=== PATIENT | female | born 1990 | race African-American/Black ===

== ENCOUNTER 2016-10-27 15:57 | Emergency (ER) | payer OTHER ==
[~2016-10-27] VITALS: Ht 170.2 cm; Wt 80.7 kg
[~2016-10-27 15:57] MED LIST: IBUP-1955 PO
[2016-10-27] MEDS ORDERED: IV SET PRIMARY PUMP SET 1 EA INFUS.SET MC ONE ×2 (16:21→16:36)
[2016-10-27] MEDS ORDERED: MORPHINE SULFATE INJ 4 MG/ML DISP.SYRIN ONE (16:21)
[2016-10-27] MEDS ORDERED: IV NS 0.9% 1,000 ML ONE (16:21)
[2016-10-27] MEDS ORDERED: ONDANSETRON HCL/PF 4 MG/2 ML VIAL ONE (16:21)
[2016-10-27] MEDS ORDERED: VANCOMYCIN 1 GM in IV D5W 250 ML IV ONE (16:30)
[2016-10-27] MEDS ORDERED: CEFTRIAXONE 1GM BAG (ER ONLY) 1 GM/50 ML PIGGYBACK IV ONE (16:30)
[2016-10-27] MEDS ORDERED: ONDANSETRON HCL/PF 4 MG/2 ML VIAL IVP ONE (16:30)
[2016-10-27] MEDS ORDERED: MORPHINE SULFATE INJ 2 MG/ML DISP.SYRIN IV ONE (16:30)
[2016-10-27] MEDS ORDERED: IV NS 0.9% 1,000 ML BAG IV ONE (16:30)
[2016-10-27] MEDS ORDERED: CEFTRIAXONE 1GM BAG (ER ONLY) 50 ML IV ONE (16:36)
[2016-10-27 16:41] LABS: BASOPHILS % (AUTO) 0.1 % (0.0-2.0); DIFF TOTAL % 100 %; EOSINOPHILS % (AUTO) 0.2 % (0.0-6.0); HEMATOCRIT 34 % (33-45); HEMOGLOBIN 10.6 g/dL (11.5-14.8); LYMPHOCYTES # (AUTO) 1.7 /CMM (0.8-4.8); MEAN CORPUSCULAR HEMOGLOBIN 24 PG (26.0-33.0); MEAN CORPUSCULAR HGB CONC 31 g/dl (31.0-36.0); MEAN CORPUSCULAR VOLUME 75 fL (82-100); MONOCYTES # (AUTO) 1.1 /CMM (0.1-1.30); MONOCYTES % (AUTO) 7.4 % (2.0-12.0); NEUTROPHILS # (AUTO) 11.6 /CMM (1.8-8.9); NEUTROPHILS % (AUTO) 80.3 % (43.0-81.0); PLATELET COUNT (AUTO) 269 /CMM (150-450); RED BLOOD CELL COUNT(AUTO) 4.49 MIL/uL (4.0-5.2); WHITE BLOOD COUNT (AUTO) 14.5 K/uL (4.3-11.0)
[2016-10-27 16:52] LABS: CALCIUM, SERUM 8.7 mg/dL (8.5-10.1); CREATININE 0.8 mg/dL (0.6-1.3); POTASSIUM 3.3 mmol/L (3.5-5.1)
[2016-10-27 16:59] LABS: LACTIC ACID 1.4 mmol/L (0.4-2.0)
[2016-10-27 18:49] VITALS: BP 128/56
== END 2016-10-27 18:50 | disposition home or self-care (01) ==
LOC: ER 15:59
DX: N61.0 Mastitis without abscess (principal); J45.909 Unspecified asthma, uncomplicated; Z98.890 Other specified postprocedural states
CPT/HCPCS: 36415; 76642; 80048; 83605; 85025; 87040; 96361; 96365; 96368; 96375; 99285; A4606; J0696; J2270; J2405; J3370; J7030; J7060; Z7610

== ENCOUNTER 2017-01-01 21:16 | Emergency (ER) | payer OTHER ==
[~2017-01-01] VITALS: Ht 170.2 cm; Wt 77.1 kg
--- NOTE | 2017-01-01 21:24 | NUR ---
called pt in wr, no reponse
[2017-01-01 21:45] VITALS: BP 135/81
--- NOTE | 2017-01-01 22:07 | NUR ---
CALLED RT FOR BREATHING TREATMENT
[2017-01-01] MEDS ORDERED: ALBUTEROL FS 2.5 MG/3 ML VIAL.NEB ONE (22:14)
[2017-01-01] MEDS: ALBUTEROL FS 2.5 MG/3 ML VIAL.NEB NEB ONE (22:15)
[2017-01-01] MEDS ORDERED: predniSONE 20 MG TABLET ONE (22:20)
[2017-01-01] MEDS: predniSONE 20 MG TABLET PO ONE (22:25)
== END 2017-01-01 23:30 | disposition home or self-care (01) ==
LOC: ER 21:21
DX: J06.9 Acute upper respiratory infection, unspecified (principal); J45.909 Unspecified asthma, uncomplicated
CPT/HCPCS: 71010-TC; A4606; Z7610